=== PATIENT | female | born 1925 | race Caucasian/White ===

== ENCOUNTER 2016-10-12 13:00 | Observation (INO) | payer OTHER ==
--- NOTE | 2016-10-12 14:12 | CPEKG ---
Heart Rate: 67 RR Interval: 896 P-R Interval: 140 QRSD Interval: 148 QT Interval: 440 QTC Interval: 465 P [place]: 56 QRS [place]: -60 T Wave [place]: 6 EKG Severity - ABNORMAL ECG - EKG Impression: SINUS RHYTHM EKG Impression: RBBB AND LAFB Electronically Signed By: Pablo Kearns 13-Oct-2016 13:41:45
[2016-10-12] MEDS ORDERED: NS 1,000 ML IV ONE (14:26)
[2016-10-12 14:35] LABS: % IMMATURE GRANULYOCYTES 0.4 % (0.0-1.1); ABSOLUTE IMMATURE GRANULOCYTES 0.03 10^3/uL (0.00-0.10); ADD DIFF? NO; ADD MORPH? NO; ADD SCAN? NO; ATYPICAL LYMPHOCYTE FLAG 0 (0-99); FRAGMENT RBC FLAG 0 (0-99); HEMATOCRIT 34.9 % (38.0-47.0); HEMOGLOBIN 11.7 g/dL (12.6-16.3); LEFT SHIFT FLG 0 (0-99); LIPEMIA HEMOLYSIS FLAG 80 (0-99); MEAN CELL HEMOGLOBIN 29.5 pg (27.9-34.1); MEAN CELL HEMOGLOBIN CONCENTR. 33.5 g/dL (32.4-36.7); MEAN CELL VOLUME 88.1 fL (81.5-99.8); MEAN PLATELET VOLUME 10.5 fL (8.7-11.7); PLATELET CLUMPS FLAG 0 (0-99); PLATELET COUNT 163 10^3/uL (150-400); RED BLOOD CELL COUNT 3.96 10^6/uL (4.18-5.33); RED CELL DISTRIBUTION WIDTH 14.6 % (11.5-15.2)
[2016-10-12 14:51] LABS: ANION GAP 12 mEq/L (8-16); CALCIUM 10.2 mg/dL (8.5-10.4); CARBON DIOXIDE 22 mEq/l (22-31); CHLORIDE 98 mEq/L (97-110); CREATININE 0.8 mg/dL (0.6-1.0); GLOMERULAR FILTRATION RATE > 60; GLUCOSE 112 mg/dL (70-100); POTASSIUM 4.3 mEq/L (3.5-5.2); SODIUM 132 mEq/L (134-144)
[2016-10-12 15:04] LABS: TROPONIN I < 0.012 ng/mL (0-0.034)
--- NOTE | 2016-10-12 15:14 | DX ---
Chest, PA and Lateral History: Chest pain Comparison: None Findings: Lung volumes are large suggesting underlying COPD/emphysema. Lungs are clear, without infil trate or consolidation. The heart is mildly enlarged with a prominent left ventricular contour. The p ulmonary vascularity is not plethoric. There is pruning of the peripheral pulmonary vessels suggestin g underlying pulmonary arterial hypertension. This likely explains prominence of the central pulmonar y arteries. There is tortuosity of the atherosclerotic thoracic aorta. There is no pleural effusion o r pneumothorax. Bones are unremarkable for age. Impression: 1. 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 If there is concern fo r pulmonary embolism consider CTA. 2. Cardiomegaly without failure. 3. No pneumonia. Results discussed with Dr. Valdez at 312 pm.
--- NOTE | 2016-10-12 15:36 | EDPHY ---
H & P Stated Complaint: Light headed for 1 hour. Blurry vision. Time Seen by Provider: 10/12/16 14:08 HPI/ROS: CHIEF COMPLAINTS: Episode of lightheadedness HISTORY OF PRESENT ILLNESS: This is an 89 year old female presenting after an episode of lightheadedness. Patient was with her daughter, shopping, in usual state of health, when she experienced an episode of feeling lightheaded, like she might pass out, while walking in the parking lot. No chest pain or shortness of breath during the episode. No nausea, vomiting, palpitations, headache, seizure activity, or loss of consciousness. Her daughter reported that she looked very pale. She was helped to the car and the episode resolved after about 10 minutes. Patient reports one or two prior episodes of the same over the past several months. She denies any fever, cough, congestion, diarrhea, periperal edema. Does note that she has had episodes of shortness of breath and chest tightness when doing housework over the past several months. She reports that if she lays down, the symptoms resolve. No orthopnea. No history of afib or arrhythmias. No history of word finding difficulties, double vision, weakness, numbness, tingling, visual field cuts. REVIEW OF SYSTEMS: Aside from elements discussed in the HPI, a comprehensive 10- point review of systems was reviewed and is negative. No urinary complaints. PAST MEDICAL HISTORY: Hypertension. Remote history of breast CA, treated with mastectomy and hysterectomy. SOCIAL HISTORY: Lives independently. Here with daughter and son. VITAL SIGNS: see nurses notes. GENERAL: Pleasant, alert, conversant. Well-developed, well-nourished, in no acute distress. HEENT: Normal, no discharge or icterus, moist mucous membranes. Neck: supple, FROM. LUNGS: Clear to auscultation bilaterally, no wheezes, rhonchi or rales. CARDIAC: Regular rate and rhythm, no rubs, murmurs or gallops. ABDOMEN: Soft, nontender, nondistended, bowel sounds normal. BACK: No CVA tenderness. No vertebral tenderness. EXTREMITIES: Very mild edema, FROM. NEURO: Alert and oriented x 3, CN 2-12 intact. Motor and sensation grossly nonfocal. SKIN: Warm and dry, no rash. Source: Patient, Family - Personal History Current Tetanus Diphtheria and Acellular Pertussis (TDAP): Yes - Medical/Surgical History Hx Asthma: No Hx Chronic Respiratory Disease: No Hx Diabetes: No Hx Cardiac Disease: No Hx Renal Disease: No Hx Cirrhosis: No Hx Alcoholism: No Hx HIV/AIDS: No Hx Splenectomy or Spleen Trauma: No Other PMH: HTN - Social History Smoking Status: Never smoked Constitutional: Initial Vital Signs Temperature (C) 36.6 C 10/12/16 13:01 Heart Rate 72 10/12/16 13:01 Respiratory Rate 16 10/12/16 13:01 Blood Pressure 159/91 H 10/12/16 13:01 O2 Sat (%) 93 10/12/16 13:01 O2 Delivery Mode Room Air Allergies/Adverse Reactions: No Known Allergies Allergy (Unverified 10/12/16 13:07) Home Medications: Medication Instructions Recorded Lisinopril [Zestril 40 mg (*)] 40 mg PO DAILY 10/12/16 amLODIPine BESYLATE [Norvasc 2.5 2.5 mg PO DAILY 10/12/16 mg (*)] Aspirin [Adult Low Dose Aspirin EC] 81 mg PO DAILY #30 tablet. 10/13/16 Medical Decision Making - Diagnostics EKG Interpretation: 12-LEAD EKG: Please see the full report in [facility]. My interpretation: RBBB and LAFB. No old ekg to compare. Imaging: X-ray: Chest x-ray was obtained. I viewed the images myself on the PACS system. My interpretation of the images is: No infiltrate, no failure. The radiologist interpretation is prominent pulmonary arteries. I discussed the x- ray findings with the patient. ED Course/Re-evaluation: 89year old presenting after a near syncopal episode. Has also reported some chest tightness and SOB with exercise over past few months. Evaluation included EKG with RBBB and LAFB, no old to compare. Troponin neg. Ddimer very elevated. CT for PE negative. BNP negative. CXR indicative of pulmonary hypertension. Discussed at length with family and patient. Will admit to [facility] to facilitate ECHO, serial troponin, consideration of stress testing if indicated. hospitalist service. Admit to Dr Marcum. Differential Diagnosis: Differential diagnosis considered for patient presenting complaint was considered including but not limited to vasovagal syncope, arrhythmia, orthostatic hypotension, medication effect, pulmonary emboli, dehydration, and blood loss. Consult/Admit Bed Type: Dr Marcum [facility] - Data Points Laboratory Results: Laboratory Results 10/12/16 14:15 10/12/16 14:15 Medications Given: Discontinued Medications Amlodipine Besylate (Norvasc) 2.5 mg PO DAILY [facility] Stop: 04/11/17 08:59 Last Admin: 10/13/16 08:42 Dose: 2.5 mg Sodium Chloride (Ns) 1,000 mls @ 0 mls/hr IV ONCE ONE PRN Reason: Wide Open Stop: 10/12/16 14:27 Last Admin: 10/12/16 14:33 Dose: 1,000 mls Lisinopril (Zestril) 40 mg PO DAILY [facility] Stop: 04/11/17 08:59 Last Admin: 10/13/16 08:43 Dose: 40 mg Departure - Departure Disposition: [facility] Inpatient Acute Clinical Impression: Pre-syncope Dyspnea Qualifiers: Dyspnea type: dyspnea on exertion Qualifier Code: (R06.09) Other forms of dyspnea Condition: Fair
[2016-10-12] MEDS ORDERED: IOPAMIDOL (ISOVUE 370) 100 ML BTL IV ONE (16:31)
--- NOTE | 2016-10-12 18:05 | CT ---
CT Pulmonary Angiogram History: Chest pain. Comparison: PA and lateral chest October 12, 2016 at 1422 hours. Technique: Axial contrast-enhanced images were obtained through the chest following the uneventful in travenous administration of 90 mL Isovue-370. Creatinine is 0.8. Multiplanar reformations were perfo rmed through the pulmonary arteries. Dose reduction techniques were utilized. Findings: This is a good quality study with visualization of the vessels to the subsegmental level. T here is no pulmonary embolus. The main pulmonary arteries are enlarged. There is diffuse peribronchia l thickening with scattered mucous plugging. Granulomas are present. Basilar atelectasis is noted. Mi ld cardiomegaly is present. Coronary artery atherosclerosis is noted in the LAD. The interventricular septum is normal. The ascending aorta is normal caliber. The descending aorta and visible abdominal aorta are ectatic with moderate atherosclerosis. There is no dissection. No pathologically enlarged l ymph nodes are identified. Degenerative change is present in the spine. Mastectomies are noted. Visualized structures in the upper abdomen are normal. Impression: 1. No visible pulmonary embolus. 2. Enlarged main pulmonary arteries, suggesting pulmonary artery hypertension. 3. Bronchitis. 4. Ectasia of the descending thoracic and visible abdominal aorta with moderate atherosclerosis. 5. Additional findings as above. Findings discussed with Dr. Dana Valdez, on October 12, 2016 at 1751 hours.
--- NOTE | 2016-10-12 20:07 | GHP ---
[f rep st] HISTORY AND PHYSICAL DATE OF ADMISSION: 10/12/2016 CHIEF COMPLAINT: Presyncope. HISTORY OF PRESENT ILLNESS: An 89-year-old female with a history of hypertension, who presents with complaints of lightheadedness and dizziness the afternoon of presentation that was severe enough she thought she would actually lose consciousness. The patient reports being in her normal state of heal th the day preceding in the morning of with normal oral intake of both fluids and food, was walking a round running errands and attending doctors appointments when she had the presyncopal symptoms. Ajith ed any associated palpitations. Denied any associated chest pain. The symptoms did resolve after ar rival to the emergency department. The patient reports longstanding history of intermittent exertion al chest pressure which relieves with rest that has occurred now going on over a year. Additionally notes some increased dyspnea on exertion, particularly with long walks or stronger exertion activitie s, also again that resolves with rest. The patient reports some new mild light-headedness in the mor nings. It started after she was started on a 2nd blood pressure agent in February, and intermittent palp itations that she cannot clearly associate with any of the other symptoms. The patient describes her self as a hospice patient. She is not anxious to have an aggressive workup, but more workup that eugenia l allow an understanding as to her normal aging. The patient denies any subjective fevers or chills. Denies vision changes, dysphagia. Denies shortness of breath. Had a recent upper respiratory infec tion in September, the symptoms have resolved. Denies abdominal discomfort. Denies diarrhea. Denies dysuria but did have some frequency in the emergency department. Denies hematuria or lower extremity edema. PAST MEDICAL HISTORY: 1. Breast cancer status post bilateral mastectomies in the 1950s. 2. Hypertension. SOCIAL HISTORY: Negative for tobacco, alcohol or illicit drugs. FAMILY HISTORY: Positive for father who had an MD in his 50s. ADVANCED DIRECTIVES: The patient is do not resuscitate. Her children would be her medical decision maker. REVIEW OF SYSTEMS: A 10-point review of systems is negative with the exception of that reported in t he HPI. PHYSICAL EXAMINATION: VITAL SIGNS: Blood pressure 154/79, heart rate 66, respiratory rate 16, 96% o n room air, 36.6. GENERAL: This is a very pleasant, healthy-appearing elderly female in no acute di stress. HEENT: Notable for moist mucous membranes. EYE: Negative for any icterus. CARDIAC: Paige ent is regular rate and rhythm. PULMONARY: Good respiratory effort. Clear to auscultation bilatera lly. GASTROINTESTINAL: Positive bowel sounds. ABDOMEN: Soft and nontender in all 4 quadrants. MU SCULOSKELETAL: Negative for any lower extremity edema. SKIN: Negative for any rashes. NEUROLOGIC: The patient is alert and oriented x3. PSYCHIATRIC: She is pleasant and cooperative on interview a nd examination. DATA: Laboratory: White count 8.5, hematocrit 34.9, platelets 163. D-dimer of 19.7. Sodium 132, a ppears near her recent baselines. Creatinine 0.8. Troponin less than 0.012. IMAGING: CTA of the chest is negative for pulmonary embolism. Does show some bronchitis. EKG, nanette cortes I personally reviewed and interpreted, shows sinus rhythm with leftward axis deviation, biphasic P wave right bundle branch block. Large R-waves in the lateral precordial leads. ASSESSMENT AND PLAN: This is an 89-year-old female with a history of hypertension, presenting with p resyncope. 1. Presyncope. Possible the patient is mildly dehydrated. She may have an occult urinary tract inf ection or cardiac dysrhythmia that she cannot feel. It is also possible that she has some underlying intermittent cardiac ischemia. Based on her wishes, I do not think an overly aggressive workup is a ppropriate. The patient received a L of normal saline in the emergency department and is urinating. We will place her on telemetry for monitoring. Check a repeat troponin in the morning and a transth oracic echo ultrasound. We will allow enough information for the patient to make additional decision s on further diagnostics. If that workup is negative, I think it is perfectly safe to send her home with outpatient followup. 2. Hypertension: Patient is on full-dose lisinopril and low-dose amlodipine. Her blood pressures a re elevated here although she does report that she does that often when in the clinic. Suspect that she is not being overtreated but will follow her blood pressures overnight and see how she settles ou t in the morning. I have continued these medications for morning administration tomorrow. 3. Hyponatremia: This appears chronic. We can recheck in the morning after hydration. PROPHYLAXIS: Patient is ambulating. DIET: Cardiac. DISPOSITION: I expect less than 2 midnights if the patient's initial diagnostics are normal. I disc ussed the case with the [facility] RN. The patient will be monitored overnight for dysrhythmias. /[id number]/MODL
[2016-10-12 22:09] LABS: COLOR YELLOW; LEUKOCYTE ESTERASE,URINE NEGATIVE (NEGATIVE); NITRITE,URINE NEGATIVE (NEGATIVE)
[2016-10-12 22:11] LABS: BACTERIA TRACE /hpf (NONE SEEN); MUCUS TRACE /lpf (NONE-1+); RBC,URINE 25-50 /hpf (0-3)
[2016-10-13 06:30] LABS: ANION GAP 10 mEq/L (8-16); CARBON DIOXIDE 22 mEq/l (22-31); CHLORIDE 105 mEq/L (97-110); CREATININE 0.7 mg/dL (0.6-1.0); GLOMERULAR FILTRATION RATE > 60; GLUCOSE 90 mg/dL (70-100); POTASSIUM 4.6 mEq/L (3.5-5.2); SODIUM 137 mEq/L (134-144)
[2016-10-13 06:33] LABS: TROPONIN I 0.015 ng/mL (0-0.034)
[2016-10-13 07:05] VITALS: PULSE 61; RESP 21; TEMP 98; O2SAT 97
[2016-10-13 08:43] VITALS: BP 152/88
[2016-10-13] MEDS ORDERED: LISINOPRIL 40 MG TAB PO SCH (09:00)
--- NOTE | 2016-10-13 11:04 | ECHO ---
[id number] + + [address] : : [place] [address] : : [phone] + + Adult Echocardiographic Report + -------+ :Name: KAYLA GARCIA TStudy Date: 10/13/2016 08:21 AM : : Hospital Admission Number: [id number] Locati on: 144: :: 1925 Gender: Female Height: 62 in : :Age: 89 yrs Race: WH Weight: 110 lb : :Reason For Study: Exertional chest tightness and DELEON : : BSA: 1.5 meter s2 : + -------+ MMode/2D Measurements & Calculations IVSd: 0.73 cm LVIDd: 4.3 cm FS: 54.0 % MV Diam: 3.1 cm LVPWd: 0.58 cm LVIDs: 2.0 cm EDV(Teich): 85.4 ml ESV(Teich): 12.7 ml EF(Teich): 85.1 % Ao root diam: LVOT diam: 1.9 cmLVLd ap4: 7.4 cm SV(MOD-sp4): 2.9 cm LVOT area: EDV(MOD-sp4): 37.0 ml LA dimension: 2.8 cm2 45.0 ml 3.8 cm LVLs ap4: 5.6 cm ESV(MOD-sp4): 8.0 ml EF(MOD-sp4): 82.2 % Normal Measurement Values: + + :LVIDd (3.5-5.7cm) IVSd (0.6-1.1cm) LVPWd (0.6-1.1cm) Aortic Root (2.0-3.7cm)Left Atrium (1.5-4.0cm): :LV Vol(d) (76-115ml) LV Vol(s) (29-48ml) Ejec Fraction (50-65%)PV Jerry (0.6- 1.2m/s) TV Jerry (0.4-1.0m/s) : :MV E Jerry (0.8-1.0m/s)MV A Jerry (0.3-1.0m/s)LVOT Jerry (0.7-1.2m/s) Asc Ao Jerry ( 0.9-1.8m/s) : + + Doppler Measurements & Calculations MV V2 max: Ao V2 max: AI max jerry: MR max jerry: 95.8 cm/sec 143.0 cm/sec 528.0 cm/sec 651.0 cm/sec MV max P.7 mmHgAo max PG: AI max PG: MR max PG: MV V2 mean: 8.2 mmHg 111.5 mmHg 169.5 mmHg 55.9 cm/sec Ao mean PG: AI dec slope: MV mean P.0 mmHg 282.0 cm/sec2 1.0 mmHg Ao V2 mean: AI P1/2t: MV V2 VTI: 29.5 cm 97.1 cm/sec 548.4 msec MV area (1 diam): Ao V2 VTI: 32.0 cm 7.5 cm2 MV Flow area (1diam): 7.5 cm2 MR(RF 1 diam): SV(MV 1 diam): TR max jerry: RF(MV,Ao)(1 11.5 % 222.7 ml 335.0 cm/sec diam): 0.05 SI(MV 1 diam): TR max P.2 ml/m2 44.9 mmHg RAP systole: 10.0 mmHg RVSP(TR): 54.9 mmHg Left Ventricle The left ventricle is normal in size. There is normal left ventricular wall thickness. Left ventricular systolic function is normal. Ejection Fraction = 65-70%. No regional wall motion abnormalities noted. Right Ventricle The right ventricle is mildly dilated. Atria The left atrium is mildly dilated. The right atrium is moderately dilated. The interatrial septum is intact with no evidence for an atrial septal defect. Mitral Valve There is moderate to severe mitral annular calcification. There is no evidence of mitral valve prolapse. There is no mitral valve stenosis. There is moderate mitral regurgitation. Tricuspid Valve Normal tricuspid valve. There is moderate to severe tricuspid regurgitation. Right ventricular systolic pressure is 55-65mmHg. There is Doppler evidence for moderate pulmonary hypertension. Aortic Valve The aortic valve is trileaflet. The aortic valve opens well. Mild-Moderate Aortic Valve Calcification. There is no aortic stenosis. Mild to moderate aortic regurgitation. Pulmonic Valve The pulmonic valve is normal in structure and function. There is no pulmonic valvular regurgitation. Great Vessels The aortic root is normal size. Pericardium/Pleural There is no pericardial effusion. Conclusion A complete two-dimensional transthoracic echocardiogram was performed (2D, M-mode, Doppler and color flow Doppler). The patient has a dilated IVC. Left ventricular systolic function is normal. Ejection Fraction = 65-70%. There are no wall motion abormalities. The right ventricle is mildly dilated. The left atrium is mildly dilated. The right atrium is moderately dilated. Mild aortic sclerosis. Mild to moderate aortic regurgitation. There is moderate to severe mitral annular calcification. There is moderate mitral regurgitation. There is moderate to severe tricuspid regurgitation. Right ventricular systolic pressure is 55-65mmHg. There is Doppler evidence for moderate pulmonary hypertension. Final Reading Physician: Giuseppe Sol signed on 10/13/2016 11:03 AM Ordering Physician: Donna Stahl Performed By: Chen Scott, CS
--- NOTE | 2016-10-13 20:47 | GDS ---
[f rep st] DISCHARGE SUMMARY DISCHARGE DIAGNOSES: 1. Presyncopal symptoms, resolved. 2. Volume depletion, improved. 3. Hypertension. 4. Hyponatremia, resolved. HISTORY: For details, please see patient's history and physical dated October 12, 2016, by Dr. Donna Stahl. In brief, the patient is an 89-year-old female with a history of hypertension, who presents to the ergency department with presyncopal symptoms. She was admitted for further evaluation. HOSPITAL COURSE: Initial workup in the emergency department revealed an elevated D-dimer, though CTA of the chest was negative for pulmonary embolism, though she does have some mild bronchitis noted on the CT. Urinalysis revealed an elevated specific gravity with some hematuria, though negative leuko cytes, negative nitrates. She is afebrile. There was no evidence of cardiac arrhythmia on telemetry monitoring. I discussed with the patient possible discharge with classroom monitor, a Holter or event monitor, though she declines this stating that she is a hospice patient and does not want any furthe r testing or interventions. There is no evidence of hypotension. She was continued on her usual out patient antihypertensives. She had 2 negative troponins. An echocardiogram was performed. It revea led normal left ventricular systolic function with ejection fraction of 65% to 70% with no wall motio n abnormalities. There was Doppler evidence for moderate pulmonary hypertension with right ventricul ar systolic pressure of 55-65 as well as valvular disease with moderate mitral regurgitation and mild to moderate aortic regurgitation. On the day of discharge, the patient wished to forego any further interventions. However, she did re port a 1-2 year history of some exertional chest pain symptoms. She did not present with chest pain. She is chest pain free at this time. I do note that there was some coronary artery atherosclerosis in the LAD seen on her chest CT. As above, she had negative troponins, but an abnormal EKG with rig ht bundle branch block. The patient wishes to be discharged home. I think this is reasonable. We discussed medical manageme nt for her coronary artery disease, and she is started on an aspirin. She declines statin therapy an d will defer beta madeline given her relative bradycardia with a resting heart rate of 60. She agrees to follow up with [facility] for further discussion of indication for statin therapy and r cedricw of her echo and valvular heart disease. DISPOSITION: Patient is discharged home in stable condition. FOLLOWUP: 1. Dr. Jemma Acosta, primary care provider. 2. [facility]. DISCHARGE MEDICATIONS: Please see [place] for complete updated outpatient medication list. Discont inued on all of her outpatient medications at the same doses. New medications on discharge include aspirin 81 mg p.o. daily, #30, no refills. /[id number]/MODL
== END 2016-10-13 10:40 | disposition home or self-care (01) ==
LOC: F1N 18:44
PROVIDERS: ADMIT Student in an Organized Health Care Education/Training Program; ATTEND Hospitalist
DX: R55 Syncope and collapse (principal); E86.9 Volume depletion, unspecified; I10 Essential (primary) hypertension; E87.1 Hypo-osmolality and hyponatremia; I27.2 Other secondary pulmonary hypertension; I08.0 Rheumatic disorders of both mitral and aortic valves; Z85.3 Personal history of malignant neoplasm of breast
CPT/HCPCS: 71020; 71275; 93005; 93306; G0378; Q9967